=== PATIENT | male | born 1950 | race African-American/Black ===

== ENCOUNTER 2016-09-09 18:30 | Emergency (ER) | payer MEDICARE, OTHER ==
[~2016-09-09] VITALS: Ht 188 cm; Wt 95.9 kg
[~2016-09-09 18:30] MED LIST: CLIN-73 PO; KEN25O TOP
[2016-09-09 19:13] VITALS: Ht 188 cm; Wt 95.9 kg
[2016-09-09] MEDS ORDERED: CLOT30CR24 TOP (19:28)
--- NOTE | 2016-09-09 19:54 | ERD ---
ER Documentation Chief Complaint Date/Time DATE: 09/09/16 TIME: 19:50 Chief Complaint rash around anus and wants bg checked to see if diabetic HPI 66-year-old male presents in emergency department for complaint of rash burning pain surrounding the perineal area and the surrounding the anal area after being Out. Patient Was in a sauna, sat on a puddle of water, when he went home, he started to have the burning pain and rash. Patient is complaining of itching. Patient denies any open wounds. Patient denies any fever or chills. Patient denies any rash in other parts of the body. Patient also wants blood sugar to be checked to make sure that he is not diabetic. Patient denies any other symptoms. Patient denies urinary urgency or frequency. Patient denies any polydipsia or polyuria or polyphagia. ROS All systems reviewed and are negative except as per history of present illness. Medications Home Meds Active Scripts Clotrimazole* (Clotrimazole* AF) 1% - 30 Gm Cream.gm., 1 APPLIC TOP BID for 7 Days, TUB Prov:SHAWN GOMEZ NP 09/09/16 Clindamycin Hcl* (Clindamycin Hcl*) 300 Mg Capsule, 300 MG PO Q8 for 7 Days, CAP Prov:LEVI RUDOLPH PA-C 02/24/16 Triamcinolone Acetonide* (Kenalog*) 0.025%-15GM Oint, 1 APPLIC TOP BID, #1 EA Prov:LEVI RUDOLPH PA-C 02/24/16 Allergies Allergies: Coded Allergies: Penicillins (Verified Allergy, Unknown, Told as a child, 01/03/16) PMhx/Soc History of Surgery: No Anesthesia Reaction: No Hx Neurological Disorder: Yes (SEIZURES,LAST TIME IN 2012;) Hx Respiratory Disorders: No Hx Cardiac Disorders: No Hx Psychiatric Problems: No Hx Miscellaneous Medical Probl: No Hx Alcohol Use: No Hx Substance Use: No Hx Tobacco Use: No Smoking Status: Never smoker FmHx Family History: No coronary disease, No diabetes, No other Physical Exam Vitals Vital Signs Date Time Temp Pulse Resp B/P Pulse Ox O2 Delivery O2 Flow Rate FiO2 09/09/16 19:13 96.9 62 16 143/82 97 Physical Exam GENERAL: The patient is well developed and appropriate for usual state of health, in no apparent distress. CHEST: Clear to auscultation bilaterally. There are no rales, wheezes or rhonchi. HEART: Regular rate and rhythm. No murmurs, clicks, rubs or gallops. No S3 or S4. ABDOMEN: Soft, nontender and nondistended. Good bowel sounds. No rebound or guarding. No gross peritonitis. No gross organomegaly or masses. No Loomis sign or McBurney point tenderness. BACK: No midline or flank tenderness. EXTREMITIES: Equal pulses bilaterally. There is no peripheral clubbing, cyanosis or edema. No focal swelling or erythema. Full range of motion. Grossly neurovascularly intact. NEURO: Alert and oriented. Cranial nerves 2-12 intact. Motor strength in all 4 extremities with 5/5 strength. Sensation grossly intact. Normal speech and gait. SKIN: Erythema with satellite lesions noted in the perineal area and in the perianal area, no fluctuance, no abscess noted, no pilonidal abscess noted. No symptoms of any cellulitis. There is no apparent ecchymosis or petechia. The skin is warm and dry. HEMATOLOGIC AND LYMPHATIC: There is no evidence of excessive bruising or lymphedema. No gross cervical, axillary, or inguinal lymphadenopathy. Results 24 hrs Laboratory Tests Test 09/09/16 19:33 09/09/16 20:54 Bedside Glucose 61mg/dL 101mg/dL [facility] Medical decision making: Patient symptoms is likely consistent with Barbara skin infection. No symptoms of any acute bacterial infection at this time. It was low upon initial evaluationemergency department, 61 mg/dl, patient had not eaten yet, patient is asymptomatic, does not feel dizziness, shortness of breath , or lightheaded. Patient was given juice in the emergency department, and the blood sugar improved afterwards, patient was advised to do a physical examination with primary care doctor. Patient was given clotrimazole 1% cream to apply on the Barbara infection. No symptoms of any sepsis at this time. Patient appears well and is hemodynamically stable. Patient was advised to follow-up with primary care doctor in 2-3 days, return to emergency department for any worsening symptoms. Departure Diagnosis: Primary Impression: Candidiasis Condition: Stable Patient Instructions: Barbara Skin Infection (Adult) SHAWN GOMEZ NP Sep 09, 2016 19:54
== END 2016-09-09 21:01 | disposition left against medical advice (07) ==
LOC: FTE 18:30
DX: B37.9 Candidiasis, unspecified (principal)
CPT/HCPCS: 82962; 99283